=== PATIENT | female | born 1940 | race African-American/Black ===

== ENCOUNTER 2019-01-17 09:25 | Day surgery (SDC) | payer MEDICARE, BC ==
[~2019-01-17] VITALS: Ht 165.1 cm; Wt 68.0 kg
[2019-01-17] MEDS ORDERED: CYCLOPENTOLATE HCL 1% OPHTH DROPS 2ML LEFTEYE NR (09:30)
[2019-01-17] MEDS ORDERED: TROPICAMIDE 1% OPHTH DROPS 15ML LEFTEYE NR (09:30)
[2019-01-17] MEDS ORDERED: PHENYLEPHRINE HCL 10% OPHTH DROPS 5ML LEFTEYE NR (09:30)
[2019-01-17] MEDS ORDERED: HYALURONATE SODIUM 14 MG/ML 0.85ML SYRINGE IO ONE ×2 (10:12→12:05)
[2019-01-17] MEDS ORDERED: LACTATED RINGERS 1,000 ML IV SCH (10:15)
[2019-01-17] MEDS ORDERED: MITOMYCIN 0.2 MG KIT OP NR (10:30)
[2019-01-17] MEDS ORDERED: CHOL20004 PO (11:12)
[2019-01-17] MEDS ORDERED: AMLO2.5T45 PO (11:12)
[2019-01-17] MEDS ORDERED: ATOR40TA70 PO (11:12)
[2019-01-17] MEDS ORDERED: AZIL1TAB3 PO (11:12)
[2019-01-17] MEDS ORDERED: VENL150C52 PO (11:12)
[2019-01-17] MEDS ORDERED: MIDAZOLAM HCL 2 MG/2 ML VIAL ONE (11:19)
[2019-01-17] MEDS ORDERED: PROPOFOL 200MG/20ML VIAL IV ONE (11:19)
[2019-01-17] MEDS ORDERED: LIDOCAINE HCL/PF 1% 10 MG/ML 5ML VIAL ONE (11:20)
[2019-01-17] MEDS ORDERED: SODIUM CHLORIDE 0.9% 1,000 ML IV ONE (12:34)
[2019-01-17] MEDS ORDERED: HYDROMORPHONE HCL/PF 2MG/ML CPJ IV PRN (12:45)
[2019-01-17] MEDS ORDERED: ONDANSETRON HCL 4MG/2ML INJ IV PRN (12:45)
[2019-01-17] MEDS ORDERED: PREDNISOLONE ACETATE 1% OPHTH DROPS 1ML ONE (13:05)
[2019-01-17] MEDS ORDERED: CIPROFLOXACIN 0.3% OPHTH SOLN 2.5ML ONE (13:05)
[2019-01-17] MEDS ORDERED: LIDOCAINE HCL 2%/EPINEPHRINE 1:100,000 20 ML VIAL INFIL ONE (13:05)
[2019-01-17] MEDS ORDERED: BUPIVACAINE HCL/PF 0.75% (7.5MG/ML) 10ML ONE (13:05)
[2019-01-17] MEDS ORDERED: NEO/POLYMYX B SULF/DEXAMETH OPHTH OINT 3.5GM ONE (13:05)
[2019-01-17] MEDS ORDERED: BALANCED SALT IRRIG SOLN 15ML ONE (13:05)
[2019-01-17] MEDS ORDERED: LIDOCAINE HCL/PF 2% 20 MG/ML 10ML VIAL ONE (13:05)
[2019-01-17] MEDS ORDERED: ACETYLCHOLINE CHLORIDE INTRAOCULAR SOLUTION 1:100 ELECTROLYTE DILUENT IO ONE (13:05)
== END 2019-01-17 13:30 | disposition home or self-care (01) ==
LOC: OR 09:25
PROVIDERS: ATTEND Ophthalmology
DX: H25.89 Other age-related cataract (principal); H40.1120 Primary open-angle glaucoma, left eye, stage unspecified; Z88.0 Allergy status to penicillin
CPT/HCPCS: 66170; 66984; 67005; J2250; J2704; J3490; J9280; V2632